=== PATIENT | male | born 1945 | race Caucasian/White ===

== ENCOUNTER 2017-09-10 07:15 | Day surgery (SDC) | payer OTHER ==
[~2017-09-10 07:15] MED LIST: AMBIEN10 MG PO; ASPIR 8181 MG PO; AVAPRO75 MG PO; CILOSTAZOL50 MG PO; CIPRO750 MG PO; Colace 100MG PO; NEURONTIN PO; PERCOCET 5/3251 TAB PO; PLAVIX75 MG PO
== END 2017-09-10 12:50 | disposition home or self-care (01) ==
LOC: CIR.AMB 07:15
DX: M54.07 Panniculitis affecting regions of neck and back, lumbosacral region (principal)

== ENCOUNTER 2018-01-14 07:01 | Day surgery (SDC) | payer OTHER | END 2018-01-14 15:55 | disposition home or self-care (01) | LOC: CIR.AMB 07:01 | DX: M54.06 Panniculitis affecting regions of neck and back, lumbar region (principal) ==

== ENCOUNTER 2020-06-17 05:20 | Inpatient (IN) | payer OTHER ==
[~2020-06-17] VITALS: Ht 170.2 cm; Wt 59.9 kg
[~2020-06-17 05:20] MED LIST changes: +DAILY MULTIPLE1 EAC2 PO; +XARELTO PO; +[UNRECOGNIZED DRUG - OTHER] PO
[2020-06-18] MEDS ORDERED: XARELTO10 MG (08:03)
[2020-06-18] MEDS ORDERED: VITAMIN C1000 MG (08:03)
[2020-06-18] MEDS ORDERED: XARELTO2.5 MG PO (08:04)
[2020-06-18] MEDS ORDERED: TADALAFIL5 MG (08:04)
[2020-06-18] MEDS ORDERED: DICLOFENAC SOD100 MG (08:04)
[2020-06-18] MEDS ORDERED: OMEGA-3 ACID ETH1 GM (08:05)
[2020-06-18] MEDS ORDERED: IRBESARTAN150 MG (08:05)
[2020-06-18] MEDS ORDERED: ROSUVASTATIN CA10 MG (08:05)
[2020-06-18] MEDS ORDERED: PANTOPRAZOLE SO40 MG (08:05)
[2020-07-11] MEDS ORDERED: TAMS0.4C PO (08:06)
[2020-07-11] MEDS ORDERED: XARELTO20 MG PO (08:06)
[2020-07-11] MEDS ORDERED: HYDRALAZINE HCL25 MG PO (08:06)
[2020-07-11] MEDS ORDERED: LIPITOR40 MG PO (08:06)
== END 2020-07-12 16:37 | DRG 483 ==
LOC: CIR.AMB 05:20 → SURH 13:08 → O/R 13:08 → SURH 14:24
PROVIDERS: ADMIT Orthopaedic Surgery Sports Medicine; ATTEND Orthopaedic Surgery Sports Medicine
PROC: 0LS30ZZ Reposition Right Upper Arm Tendon, Open Approach (ICD-10-PCS; 2020-06-17)
PROC: 0RRJ00Z Replacement of Right Shoulder Joint with Reverse Ball and Socket Synthetic Substitute, Open Approach (ICD-10-PCS; principal; 2020-06-17 11:30)
PROC: B24BZZZ Ultrasonography of Heart with Aorta (ICD-10-PCS; 2020-06-18)
PROC: 4A12X4Z Monitoring of Cardiac Electrical Activity, External Approach (ICD-10-PCS; 2020-06-18)
PROC: 0DH63UZ Insertion of Feeding Device into Stomach, Percutaneous Approach (ICD-10-PCS; 2020-07-09)
DX: M75.121 Complete rotator cuff tear or rupture of right shoulder, not specified as traumatic (principal); I63.232 Cerebral infarction due to unspecified occlusion or stenosis of left carotid arteries; G81.91 Hemiplegia, unspecified affecting right dominant side; E87.0 Hyperosmolality and hypernatremia; R47.01 Aphasia; N17.8 Other acute kidney failure; N39.0 Urinary tract infection, site not specified; M19.011 Primary osteoarthritis, right shoulder; Z20.822 Contact with and (suspected) exposure to COVID-19; R13.19 Other dysphagia; E87.6 Hypokalemia; B96.5 Pseudomonas (aeruginosa) (mallei) (pseudomallei) as the cause of diseases classified elsewhere; E86.0 Dehydration

== ENCOUNTER 2021-01-01 23:22 | Emergency (ER) | payer OTHER ==
[~2021-01-01] VITALS: Ht 160 cm; Wt 54.4 kg
[~2021-01-01 23:22] MED LIST changes: +DICLOFENAC SOD100 MG; +HYDRALAZINE HCL25 MG PO; +IRBESARTAN150 MG; +LIPITOR40 MG PO; +OMEGA-3 ACID ETH1 GM; +PANTOPRAZOLE SO40 MG; +ROSUVASTATIN CA10 MG; +TADALAFIL5 MG; +TAMS0.4C PO; +VITAMIN C1000 MG; +XARELTO10 MG; +XARELTO2.5 MG PO; +XARELTO20 MG PO
== END 2021-01-02 02:02 | disposition home or self-care (01) ==
LOC: ER 23:22
DX: K94.23 Gastrostomy malfunction (principal); Z11.52 Encounter for screening for COVID-19